=== PATIENT | male | born 1950 | race Native Hawaiian/Other Pacific Islander ===

== ENCOUNTER 2025-02-17 04:18 | Emergency (ER) | payer MEDICARE, MEDICAID, SELFPAY ==
[2025-02-17 04:30] VITALS: BP 147/85; PULSE 75; RESP 16; TEMP 36.8; O2SAT 98; BMI 28.0
--- NOTE | 2025-02-17 04:41 | EDNOTE_ITS ---
<Statement entered by Sharron Temple MD - 03/01/25 19:09> As co-signing physician, I was present and available for consult prn. I concur with the plan and care as documented by the midlevel provider. ED Animal Bite RME/HPI General Chief Complaint: Animal Bite Stated Complaint: DOG BITE TO LEFT LOWER LEG Time Seen by Provider: 02/17/25 04:41 Source: patient, family, RN notes reviewed and old records reviewed Arrival date/time: 02/17/25 04:18 Mode of arrival: ambulatory Limitations: no limitations RME / HPI RME / HPI narrative: 75yom presents to ED for dog bite that occurred last night. Patient states his neighbor's small dog nipped at his left lower leg. Unknown rabies vacc status but dog lives in the house. Unknown last tetanus vacc of patient. Patient applied garlic and bandage to wound guard captain. Related Data Allergies Allergy/AdvReac Type Severity Reaction Status Date / Time No Known Allergies Allergy Verified 02/17/25 04:19 Review of Systems Review of Systems Systems Reviewed: All systems reviewed, normal except as documented Integumentary/Breasts Comments: Reports abrasion/puncture wound Past Medical History Surgical History OTHER SURGICAL HX: denies pshx Social History SMOKING STATUS: Never smoker SUBSTANCE USE: does not use ALCOHOL: Never Past Medical History Comments PMH COMMENT: denies pmhx ED Exam General Limitations: Present no limitations General appearance: Present alert and in no apparent distress Head Head exam: Present atraumatic and normocephalic Eye Eye exam: Present normal appearance, PERRL and EOMI ENT ENT exam: Present normal exam and mucous membranes moist Neck Neck exam: Present normal inspection and full ROM Chest Chest inspection: Present normal inspection and symmetric chest wall rise Respiratory Respiratory exam: Present normal lung sounds bilaterally; Absent respiratory distress Cardiovascular Cardiovascular exam: Present regular rate and normal rhythm Extremities Exam Extremities exam: Present normal inspection, full ROM and normal capillary refill; Absent tenderness or joint swelling Neurological Exam Neurological exam: Present alert and oriented X3 Psychiatric Psychiatric exam: Present normal affect and normal mood Skin Skin exam: Present other (Superficial abrasion/puncture wound to left LE) Course Quality Measures none Orders Category Date Time Status TET,DIP/PERT AC (Adult)-Tdap [Boostrix Adult (Tdap) Med 02/17/25 04:42 Discontinued Vacc] 0.5 ml IMI .ONCE ONE Vital Signs Vital signs: Vital Signs Temperature 98.2 F 02/17/25 04:30 Pulse Rate 75 02/17/25 04:30 Respiratory Rate 16 02/17/25 04:30 Blood Pressure 147/85 H 02/17/25 04:30 Pulse Oximetry (%) 98 02/17/25 04:30 Oxygen Delivery Method Room Air 02/17/25 04:30 Animal Bite MDM Narrative MDM Narrative:: 75yom presents to ED for dog bite that occurred last night. Patient states his neighbor's small dog nipped at his left lower leg. Unknown rabies vacc status but dog lives in the house. Unknown last tetanus vacc of patient. Patient applied garlic and bandage to wound guard captain. Dog bite appears superficial. Tetanus vacc updated. Home wound care discussed. Stable for dc, RTED precautions given. Patient data External records reviewed:: None (no prior visits) Clinical information provided by:: patient Social determinants that could affect healthcare access:: none Patient has the following chronic illnesses:: none How is presenting disease/condition affected by chronic disease/condition?: no c hronic disease Evaluation data The following diagnostics were reviewed and interpreted by me:: other (specify) (none) Lab and/or radiology exams considered but not ordered:: tib/fib xrays: do not suspect fx or fb Interpretation Summary: na Medications / Prescriptions Medications or Prescriptions considered but not ordered:: rabies vaccine Medication administrations:: Medication Administration History Discontinued Medications Diphtheria/Tetanus/Acell Pertussis (Diphth,Pertuss(Acell),Tet Vac 0.5 Ml Syr- Adult) 0.5 ml IMi .ONCE ONE Stop: 02/17/25 04:43 Last Admin: 02/17/25 05:25 Dose: 0.5 ml Documented By: MEL powell medication administered in ED Consultations Consultation(s) initiated? (list below): No Diagnosis Differential diagnosis animal bite: dog bite and other (laceration, abrasion, avulsion, puncture wound) Most likely diagnosis given after review of the tests above:: abrasion/puncture wound from dog bite Admission Indicated Admission indicated?: not indicated Admission Request Was there a request for admission?: No Disposition Plan Disposition Plan: Discharge Discharge Attestation Discharge Attestation: The patient and all family members were given an opportunity to ask questions and understood the discharge instructions. Discharge instructions specifically effects, indications for sooner follow up or return to the emergency department, and the expected course of current diagnosis. Patient condition: Stable Discharge Plan Plan Patient Disposition: HOME (Self Care) Patient condition on transfer: Stable Problem List Clinical Impression: Dog bite Patient/Caregiver Discharge Instructions Education Materials: ED Dog Bite Print Language: German Stand Alone Forms: Corina Award Info., Patient Portal Info Letter PA/DETECTIVE PRIVATE EYE Supervising Physician PA/DETECTIVE [employer] Supervising Physician: [place]
[2025-02-17] MEDS: DIPHTH,PERTUSS(ACELL),TET VAC 0.5 ML SYR- ADULT IMi (05:25)
== END 2025-02-17 05:31 | disposition home or self-care (01) ==
LOC: SERX 05:03
PROVIDERS: Emergency Provider Emergency Medicine; PCP Family Medicine
DX: S81.852A Open bite, left lower leg, initial encounter (principal); W54.0XXA Bitten by dog, initial encounter; Z23 Encounter for immunization
CPT/HCPCS: 90471; 90715; 99282